=== PATIENT | male | born 1955 | race Caucasian/White ===

== ENCOUNTER 2016-10-11 07:50 | Emergency (ER) | payer OTHER ==
[~2016-10-11] VITALS: Ht 177.8 cm; Wt 97.0 kg
[~2016-10-11 07:50] MED LIST: AMIO200 PO; ASPI325T PO; ATOR10 PO; IBUP800T23 PO; LEVA500T PO; LORTA5 PO; METO25 PO; MILKSUS5 PO; PRIL20CA PO; SUPETAB30 PO; ULTR50TA PO
[2016-10-11 07:56] VITALS: BP 130/89; PULSE 81; RESP 17; TEMP 98.6; O2SAT 95
[2016-10-11] MEDS ORDERED: ASPI81CH37 CHEW (08:08)
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
== END 2016-10-11 09:10 | disposition home or self-care (01) ==
LOC: PHED 07:50
DX: S00.31XA Abrasion of nose, initial encounter (principal); M79.641 Pain in right hand; S80.212A Abrasion, left knee, initial encounter; S80.811A Abrasion, right lower leg, initial encounter; V19.9XXA Pedal cyclist (driver) (passenger) injured in unspecified traffic accident, initial encounter; Y93.55 Activity, bike riding
CPT/HCPCS: 73120; 99284